=== PATIENT | female | born 1950 | race Caucasian/White ===

== ENCOUNTER 2018-09-15 14:19 | Emergency (ER) | payer MEDICARE ==
[2018-09-15] MEDS: SOD CHLORIDE 0.9% 1,000 ML IV ×2 (16:25→18:31)
[2018-09-15] MEDS: ONDANSETRON 4 MG INJ IV (16:29)
[2018-09-15 17:00] LABS: ADD MAN DIFF? NO
[2018-09-15 17:08] LABS: BASOPHIL # 0.1 10^3/ul (0.0-0.1); BASOPHILS % 0.5 % (0.0-2.0); EOSINOPHILS # 0.1 10^3/ul (0.0-0.5); EOSINOPHILS % 0.5 % (0.0-7.0); HEMATOCRIT 53.2 % (37.0-47.0); HEMOGLOBIN 17.5 g/dl (12.0-16.0); LYMPHOCYTES # 2.1 10^3/ul (0.8-2.9); LYMPHOCYTES % 15.8 % (15.0-51.0); MEAN CORPUSCULAR HEMOGLOBIN 28.8 pg (29.0-33.0); MEAN CORPUSCULAR HGB CONC 32.9 g/dl (32.0-37.0); MEAN CORPUSCULAR VOLUME 87.6 fl (82.0-101.0); MEAN PLATELET VOLUME 11.8 fl (7.4-10.4); MONOCYTE # 1.3 10^3/ul (0.3-0.9); NEUTROPHIL # 9.7 10^3/ul (1.6-7.5); NEUTROPHILS % 72.7 % (39.0-77.0); PLATELET COUNT 257 10^3/UL (140-415); RED BLOOD COUNT 6.07 10^6/ul (4.20-5.40); RED CELL DISTRIBUTION WIDTH 15.4 % (11.5-14.5)
[2018-09-15 17:08] LABS: WHITE BLOOD COUNT 13.3 10^3/ul (4.8-10.8)
[2018-09-15 17:29] LABS: ALANINE AMINOTRANSFERASE 25 IU/L (13-69); ALBUMIN 4.4 g/dl (3.3-4.9); ALBUMIN/GLOBULIN RATIO 1.12; ALKALINE PHOSPHATASE 118 IU/L (42-121); ANION GAP 20 (5-13); ASPARTATE AMINO TRANSFERASE 45 IU/L (15-46); BILIRUBIN,INDIRECT 1.2 mg/dl (0-1.1); BILIRUBIN,TOTAL 1.2 mg/dl (0.2-1.3); BLOOD UREA NITROGEN 31 mg/dl (7-20); CALCIUM 9.6 mg/dl (8.4-10.2); CARBON DIOXIDE 26 mmol/L (21-31); CHLORIDE 89 mmol/L (97-110); CREATININE 1.59 mg/dl (0.44-1.00); Estimated GFR 32 mL/min (>60); GLUCOSE 168 mg/dl (70-220); LIPASE 245 U/L (23-300); POTASSIUM 3.4 mmol/L (3.5-5.1); SODIUM 135 mmol/L (135-144); TOTAL PROTEIN 8.3 g/dl (6.1-8.1)
[2018-09-15] MEDS: LIDOCAINE/MYLANTA 40 ML BTL PO (18:31)
[2018-09-15] MEDS: FAMOTIDINE 20 MG TAB PO (18:31)
== END 2018-09-15 21:49 | disposition home or self-care (01) ==
LOC: E/R 14:19
DX: N28.9 Disorder of kidney and ureter, unspecified (principal); E86.0 Dehydration
CPT/HCPCS: 36415; 80053; 83690; 85025; 93005; 96374; 99284-25

== ENCOUNTER 2018-09-17 15:05 | Inpatient (IN) | payer MEDICARE ==
[~2018-09-17 15:05] MED LIST: DESFLURANE 15 MIN; LIDOCAINE 2% (SDV) 5 ML INJ; PROPOFOL 200 MG INJ
[2018-09-17 16:05] LABS: ADD MAN DIFF? NO
[2018-09-17] MEDS: SOD CHLORIDE 0.9% 1,000 ML IV (16:05)
[2018-09-17] MEDS: ONDANSETRON 4 MG INJ IV ×2 (16:05→17:47)
[2018-09-17 16:13] LABS: WHITE BLOOD COUNT 10.7 10^3/ul (4.8-10.8)
[2018-09-17 16:13] LABS: BASOPHIL # 0.1 10^3/ul (0.0-0.1); BASOPHILS % 0.6 % (0.0-2.0); EOSINOPHILS % 0.4 % (0.0-7.0); HEMATOCRIT 49.5 % (37.0-47.0); HEMOGLOBIN 16.5 g/dl (12.0-16.0); LYMPHOCYTES # 0.9 10^3/ul (0.8-2.9); LYMPHOCYTES % 8.7 % (15.0-51.0); MEAN CORPUSCULAR HEMOGLOBIN 29.3 pg (29.0-33.0); MEAN CORPUSCULAR HGB CONC 33.3 g/dl (32.0-37.0); MEAN CORPUSCULAR VOLUME 87.9 fl (82.0-101.0); MEAN PLATELET VOLUME 12.3 fl (7.4-10.4); MONOCYTE # 1.2 10^3/ul (0.3-0.9); MONOCYTES % 11.5 % (0.0-11.0); NEUTROPHIL # 8.4 10^3/ul (1.6-7.5); NEUTROPHILS % 78.3 % (39.0-77.0); PLATELET COUNT 224 10^3/UL (140-415); RED BLOOD COUNT 5.63 10^6/ul (4.20-5.40); RED CELL DISTRIBUTION WIDTH 14.7 % (11.5-14.5)
[2018-09-17 16:29] LABS: ALANINE AMINOTRANSFERASE 31 IU/L (13-69); ALBUMIN/GLOBULIN RATIO 1.11; ALKALINE PHOSPHATASE 94 IU/L (42-121); ANION GAP 16 (5-13); ASPARTATE AMINO TRANSFERASE 28 IU/L (15-46); BILIRUBIN,INDIRECT 0.7 mg/dl (0-1.1); BILIRUBIN,TOTAL 0.7 mg/dl (0.2-1.3); BLOOD UREA NITROGEN 26 mg/dl (7-20); CALCIUM 9.2 mg/dl (8.4-10.2); CARBON DIOXIDE 29 mmol/L (21-31); CHLORIDE 90 mmol/L (97-110); CREATININE 1.15 mg/dl (0.44-1.00); Estimated GFR 47 mL/min (>60); GLUCOSE 170 mg/dl (70-220); LIPASE 821 U/L (23-300); POTASSIUM 3.5 mmol/L (3.5-5.1); SODIUM 135 mmol/L (135-144); TOTAL PROTEIN 7.6 g/dl (6.1-8.1)
[2018-09-17 16:40] LABS: TROPONIN-I < 0.012 ng/ml (0.000-0.120)
[2018-09-17] MEDS: LIDOCAINE 2% VISC 15 ML CUP PO (17:47)
[2018-09-17] MEDS: LORAZEPAM 2 MG INJ IV (17:47)
[2018-09-17] MEDS ORDERED: hydrALAzine 20 MG INJ IV (18:30)
[2018-09-17] MEDS ORDERED: ONDANSETRON 4 MG INJ IV ×3 (18:30→22:30)
[2018-09-17] MEDS ORDERED: NACL 0.9% 3 ML SYG IV (18:30)
[2018-09-17] MEDS ORDERED: HYDROCODONE/APAP (5/325) TAB PO (18:30)
[2018-09-17] MEDS ORDERED: DOCUSATE SODIUM 100 MG CAP PO (18:30)
[2018-09-17] MEDS ORDERED: MAGNESIUM HYDROXIDE 30ML CUP PO (18:30)
[2018-09-17] MEDS ORDERED: ACETAMINOPHEN 325 MG TAB PO ×2 (18:30)
[2018-09-17] MEDS ORDERED: NITROGLYCERIN (SL) 0.4 MG TAB SL (18:30)
[2018-09-17] MEDS ORDERED: ALBUTEROL/IPRATROPIUM (NEB) 3 ML AMP HHN (18:30)
[2018-09-17 18:43] LABS: INR 0.92; PROTIME 12.5 Sec (11.9-14.9)
[2018-09-17 18:44] LABS: PARTIAL THROMBOPLASTIN TIME 25.8 Sec (23.0-35.0)
[2018-09-17] MEDS ORDERED: BUPIVACAINE 0.5%/EPI (SDV) 30 ML INJ (18:50)
[2018-09-17] MEDS ORDERED: LIDOCAINE 1% (MPF) 30 ML INJ (18:50)
[2018-09-17 19:02] LABS: FREE T4 (FREE THYROXINE) 1.34 ng/dl (0.78-2.44)
[2018-09-17] MEDS ORDERED: morphine SULFATE/PF (10 MG/10 ML) INJ (19:47)
[2018-09-17] MEDS ORDERED: FENTAnyl 50 MCG/ML VIAL (19:47)
[2018-09-17] MEDS ORDERED: MIDAZOLAM 1 MG/ML 2 ML INJ (20:00)
[2018-09-17] MEDS ORDERED: SUCCINYLCHOLINE CHLORIDE 100 MG/5 ML SYG IV (20:00)
[2018-09-17] MEDS ORDERED: PROPOFOL 20 ML (20:00)
[2018-09-17] MEDS ORDERED: EPHEDrine 50 MG INJ (20:26)
[2018-09-17] MEDS ORDERED: VASOPRESSIN 20 UNITS INJ (20:26)
[2018-09-17] MEDS ORDERED: ROPIVACAINE 0.5 % 30 ML VIAL (21:53)
[2018-09-17] MEDS ORDERED: SUGAMMADEX SODIUM 200 MG/2 ML VIAL IV (22:10)
[2018-09-17] MEDS ORDERED: FLUMAZENIL 0.5 MG INJ (22:13)
[2018-09-17] MEDS ORDERED: morphine 2 MG INJ IV (22:30)
[2018-09-17] MEDS ORDERED: KETOROLAC 30 MG INJ IV ×2 (22:30→23:00)
[2018-09-17] MEDS ORDERED: NALOXONE (0.4 MG/ML) INJ IV (23:00)
[2018-09-17] MEDS ORDERED: HYDROmorphONE 0.5 MG/0.5 ML SYG IV ×2 (23:00)
[2018-09-17] MEDS: SOD CHLORIDE 0.9% 500 ML IV (23:03)
[2018-09-17] MEDS: CEFTRIAXONE 1 GM/50 ML (PMX) 50 ML IVPB (23:42)
[2018-09-18] MEDS: AMPICILLIN/SULB 3 GM/NS (PMX) 100 ML IVPB (01:16)
[2018-09-18] MEDS: SOD CHLORIDE 0.45% 1,000 ML IV ×2 (01:16→07:34)
[2018-09-18] MEDS: D5W-0.45 NACL + KCL 20 MEQ 1,000 ML IV ×3 (01:22→12:51)
[2018-09-18] MEDS: PANTOPRAZOLE 40 MG INJ IV ×2 (05:53→05:54)
[2018-09-18] MEDS: HEPARIN 5,000 UNIT/1 ML VIAL SC ×3 (05:54→21:32)
[2018-09-18] MEDS: metroNIDAZOLE 500 MG/NS (PMX) 100 ML IVPB ×3 (05:54→21:09)
[2018-09-18 09:15] LABS: ADD MAN DIFF? NO
[2018-09-18 09:23] LABS: BASOPHIL # 0.1 10^3/ul (0.0-0.1); BASOPHILS % 0.4 % (0.0-2.0); EOSINOPHILS % 0.1 % (0.0-7.0); HEMATOCRIT 47.8 % (37.0-47.0); HEMOGLOBIN 15.8 g/dl (12.0-16.0); LYMPHOCYTES # 0.6 10^3/ul (0.8-2.9); LYMPHOCYTES % 5.2 % (15.0-51.0); MEAN CORPUSCULAR HEMOGLOBIN 29.3 pg (29.0-33.0); MEAN CORPUSCULAR HGB CONC 33.1 g/dl (32.0-37.0); MEAN CORPUSCULAR VOLUME 88.7 fl (82.0-101.0); MEAN PLATELET VOLUME 12.9 fl (7.4-10.4); MONOCYTE # 1.1 10^3/ul (0.3-0.9); MONOCYTES % 8.8 % (0.0-11.0); NEUTROPHIL # 10.3 10^3/ul (1.6-7.5); NEUTROPHILS % 85.1 % (39.0-77.0); PLATELET COUNT 184 10^3/UL (140-415); RED BLOOD COUNT 5.39 10^6/ul (4.20-5.40); RED CELL DISTRIBUTION WIDTH 14.6 % (11.5-14.5)
[2018-09-18 09:23] LABS: WHITE BLOOD COUNT 12.1 10^3/ul (4.8-10.8)
[2018-09-18 09:35] LABS: ANION GAP 12 (5-13); BLOOD UREA NITROGEN 29 mg/dl (7-20); CALCIUM 8.3 mg/dl (8.4-10.2); CARBON DIOXIDE 29 mmol/L (21-31); CHLORIDE 94 mmol/L (97-110); CREATININE 1.39 mg/dl (0.44-1.00); Estimated GFR 38 mL/min (>60); GLUCOSE 166 mg/dl (70-220); PHOSPHORUS 5.4 mg/dl (2.5-4.9); POTASSIUM 4.1 mmol/L (3.5-5.1); SODIUM 135 mmol/L (135-144)
[2018-09-18 09:47] LABS: HEMOGLOBIN A1C 5.8 % (0-5.9)
[2018-09-18 09:52] LABS: CHOLESTEROL 104 mg/dl (100-200)
[2018-09-18 09:52] LABS: CHOL/HDL RATIO 2.1 RATIO; HDL CHOLESTEROL 49 mg/dl (35-98); LDL CHOLESTEROL,CALCULATED 40 mg/dl; TRIGLYCERIDES 73 mg/dl (0-149)
[2018-09-18 10:19] LABS: THYROID STIMULATING HORMONE 0.775 MIU/L (0.465-4.680)
[2018-09-18] MEDS: DIPHENHYDRAMINE 50 MG INJ IV (21:08)
[2018-09-18] MEDS: FAMOTIDINE 20 MG INJ IV (21:09)
[2018-09-19] MEDS: D5W-0.45 NACL + KCL 20 MEQ 1,000 ML IV ×3 (06:12→22:10)
[2018-09-19] MEDS: HEPARIN 5,000 UNIT/1 ML VIAL SC ×3 (06:26→22:06)
[2018-09-19 07:49] LABS: ADD MAN DIFF? NO
[2018-09-19 07:53] LABS: WHITE BLOOD COUNT 8.1 10^3/ul (4.8-10.8)
[2018-09-19 07:53] LABS: ABNORMAL IP MESSAGE 1; BASOPHILS % 0.5 % (0.0-2.0); EOSINOPHILS # 0.1 10^3/ul (0.0-0.5); HEMATOCRIT 45.6 % (37.0-47.0); HEMOGLOBIN 14.4 g/dl (12.0-16.0); LYMPHOCYTES # 0.9 10^3/ul (0.8-2.9); LYMPHOCYTES % 11.6 % (15.0-51.0); MEAN CORPUSCULAR HEMOGLOBIN 28.8 pg (29.0-33.0); MEAN CORPUSCULAR HGB CONC 31.6 g/dl (32.0-37.0); MEAN CORPUSCULAR VOLUME 91.2 fl (82.0-101.0); MEAN PLATELET VOLUME 13.2 fl (7.4-10.4); MONOCYTE # 1.2 10^3/ul (0.3-0.9); MONOCYTES % 14.6 % (0.0-11.0); NEUTROPHIL # 5.8 10^3/ul (1.6-7.5); NEUTROPHILS % 71.8 % (39.0-77.0); PLATELET COUNT 174 10^3/UL (140-415)
[2018-09-19 07:55] LABS: POSITIVE DIFF @See below
[2018-09-19 08:11] LABS: ANION GAP 8 (5-13); BLOOD UREA NITROGEN 28 mg/dl (7-20); CALCIUM 8.4 mg/dl (8.4-10.2); CARBON DIOXIDE 29 mmol/L (21-31); CHLORIDE 96 mmol/L (97-110); CREATININE 1.03 mg/dl (0.44-1.00); Estimated GFR 53 mL/min (>60); GLUCOSE 144 mg/dl (70-220); POTASSIUM 4.2 mmol/L (3.5-5.1); SODIUM 133 mmol/L (135-144)
[2018-09-19] MEDS: FAMOTIDINE 20 MG INJ IV ×2 (08:39→22:04)
[2018-09-19] MEDS: morphine 2 MG INJ IV (11:18)
[2018-09-19] MEDS: LORAZEPAM 2 MG INJ IV (22:04)
[2018-09-20] MEDS: HEPARIN 5,000 UNIT/1 ML VIAL SC ×3 (05:39→22:15)
[2018-09-20 05:58] LABS: ADD MAN DIFF? NO
[2018-09-20 06:29] LABS: ABNORMAL IP MESSAGE 1; BASOPHIL # 0.1 10^3/ul (0.0-0.1); BASOPHILS % 0.7 % (0.0-2.0); EOSINOPHILS # 0.3 10^3/ul (0.0-0.5); EOSINOPHILS % 3.3 % (0.0-7.0); HEMATOCRIT 43.8 % (37.0-47.0); HEMOGLOBIN 14.2 g/dl (12.0-16.0); LYMPHOCYTES # 1.2 10^3/ul (0.8-2.9); LYMPHOCYTES % 15.2 % (15.0-51.0); MEAN CORPUSCULAR HEMOGLOBIN 29.1 pg (29.0-33.0); MEAN CORPUSCULAR HGB CONC 32.4 g/dl (32.0-37.0); MEAN CORPUSCULAR VOLUME 89.8 fl (82.0-101.0); MEAN PLATELET VOLUME 13.2 fl (7.4-10.4); MONOCYTE # 1.1 10^3/ul (0.3-0.9); MONOCYTES % 14.4 % (0.0-11.0); NEUTROPHIL # 5.1 10^3/ul (1.6-7.5); NEUTROPHILS % 66.1 % (39.0-77.0); PLATELET COUNT 191 10^3/UL (140-415); RED BLOOD COUNT 4.88 10^6/ul (4.20-5.40)
[2018-09-20 06:29] LABS: WHITE BLOOD COUNT 7.7 10^3/ul (4.8-10.8)
[2018-09-20 06:39] LABS: POSITIVE DIFF @See below
[2018-09-20 06:41] LABS: ANION GAP 6 (5-13); BLOOD UREA NITROGEN 15 mg/dl (7-20); CALCIUM 8.3 mg/dl (8.4-10.2); CARBON DIOXIDE 30 mmol/L (21-31); CHLORIDE 99 mmol/L (97-110); CREATININE 0.74 mg/dl (0.44-1.00); Estimated GFR > 60 mL/min (>60); GLUCOSE 142 mg/dl (70-220); POTASSIUM 3.7 mmol/L (3.5-5.1); SODIUM 135 mmol/L (135-144)
[2018-09-20] MEDS: D5W-0.45 NACL + KCL 20 MEQ 1,000 ML IV ×2 (07:54→23:26)
[2018-09-20] MEDS: FAMOTIDINE 20 MG INJ IV ×2 (09:40→22:08)
[2018-09-20] MEDS ORDERED: CEPASTAT LOZENGE MT (09:48)
[2018-09-20] MEDS: ZOLPIDEM 5 MG TAB PO (21:09)
[2018-09-20] MEDS: DIPHENHYDRAMINE 50 MG INJ IV (23:34)
[2018-09-21 05:22] LABS: ADD MAN DIFF? NO
[2018-09-21 05:24] LABS: WHITE BLOOD COUNT 8.1 10^3/ul (4.8-10.8)
[2018-09-21 05:24] LABS: BASOPHIL # 0.1 10^3/ul (0.0-0.1); BASOPHILS % 0.7 % (0.0-2.0); EOSINOPHILS # 0.3 10^3/ul (0.0-0.5); EOSINOPHILS % 3.7 % (0.0-7.0); HEMATOCRIT 45.3 % (37.0-47.0); HEMOGLOBIN 14.5 g/dl (12.0-16.0); LYMPHOCYTES # 1.1 10^3/ul (0.8-2.9); LYMPHOCYTES % 13.5 % (15.0-51.0); MEAN CORPUSCULAR HEMOGLOBIN 29.1 pg (29.0-33.0); MEAN CORPUSCULAR VOLUME 90.8 fl (82.0-101.0); MEAN PLATELET VOLUME 12.8 fl (7.4-10.4); MONOCYTES % 12.7 % (0.0-11.0); NEUTROPHIL # 5.5 10^3/ul (1.6-7.5); NEUTROPHILS % 68.7 % (39.0-77.0); PLATELET COUNT 191 10^3/UL (140-415); RED BLOOD COUNT 4.99 10^6/ul (4.20-5.40); RED CELL DISTRIBUTION WIDTH 14.7 % (11.5-14.5)
[2018-09-21 05:45] LABS: ANION GAP 9 (5-13); BLOOD UREA NITROGEN 8 mg/dl (7-20); CALCIUM 8.2 mg/dl (8.4-10.2); CARBON DIOXIDE 30 mmol/L (21-31); CHLORIDE 98 mmol/L (97-110); Estimated GFR > 60 mL/min (>60); GLUCOSE 130 mg/dl (70-220); SODIUM 137 mmol/L (135-144)
[2018-09-21] MEDS: HEPARIN 5,000 UNIT/1 ML VIAL SC ×3 (06:17→20:45)
[2018-09-21] MEDS: D5W-0.45 NACL + KCL 20 MEQ 1,000 ML IV ×3 (06:22→20:39)
[2018-09-21] MEDS: FAMOTIDINE 20 MG INJ IV ×2 (09:26→20:39)
[2018-09-21] MEDS: LORAZEPAM 2 MG INJ IV (20:40)
[2018-09-22 05:13] LABS: ADD MAN DIFF? NO
[2018-09-22 05:23] LABS: WHITE BLOOD COUNT 8.6 10^3/ul (4.8-10.8)
[2018-09-22 05:23] LABS: BASOPHIL # 0.1 10^3/ul (0.0-0.1); EOSINOPHILS # 0.5 10^3/ul (0.0-0.5); EOSINOPHILS % 5.8 % (0.0-7.0); HEMATOCRIT 44.4 % (37.0-47.0); HEMOGLOBIN 13.9 g/dl (12.0-16.0); LYMPHOCYTES # 1.5 10^3/ul (0.8-2.9); LYMPHOCYTES % 17.3 % (15.0-51.0); MEAN CORPUSCULAR HGB CONC 31.3 g/dl (32.0-37.0); MEAN CORPUSCULAR VOLUME 92.5 fl (82.0-101.0); MEAN PLATELET VOLUME 12.2 fl (7.4-10.4); MONOCYTE # 1.3 10^3/ul (0.3-0.9); MONOCYTES % 14.6 % (0.0-11.0); NEUTROPHIL # 5.2 10^3/ul (1.6-7.5); NEUTROPHILS % 60.1 % (39.0-77.0); PLATELET COUNT 239 10^3/UL (140-415); RED CELL DISTRIBUTION WIDTH 14.9 % (11.5-14.5)
[2018-09-22] MEDS: D5W-0.45 NACL + KCL 20 MEQ 1,000 ML IV ×2 (05:50→16:52)
[2018-09-22] MEDS: HEPARIN 5,000 UNIT/1 ML VIAL SC ×3 (05:54→21:28)
[2018-09-22 05:57] LABS: ANION GAP 6 (5-13); BLOOD UREA NITROGEN 6 mg/dl (7-20); CALCIUM 8.2 mg/dl (8.4-10.2); CARBON DIOXIDE 33 mmol/L (21-31); CHLORIDE 98 mmol/L (97-110); CREATININE 0.63 mg/dl (0.44-1.00); Estimated GFR > 60 mL/min (>60); GLUCOSE 134 mg/dl (70-220); POTASSIUM 3.5 mmol/L (3.5-5.1); SODIUM 137 mmol/L (135-144)
[2018-09-22] MEDS: FAMOTIDINE 20 MG INJ IV ×2 (08:39→21:24)
[2018-09-22] MEDS: LOPERAMIDE 2 MG CAP PO (16:49)
[2018-09-22] MEDS: LORAZEPAM 2 MG INJ IV (22:39)
[2018-09-22] MEDS: ZOLPIDEM 5 MG TAB PO (23:50)
[2018-09-23] MEDS: ZOLPIDEM 5 MG TAB PO ×2 (01:42→23:36)
[2018-09-23] MEDS: D5W-0.45 NACL + KCL 20 MEQ 1,000 ML IV ×3 (03:10→15:03)
[2018-09-23 05:00] LABS: ADD MAN DIFF? NO
[2018-09-23 05:02] LABS: WHITE BLOOD COUNT 9.2 10^3/ul (4.8-10.8)
[2018-09-23 05:02] LABS: BASOPHIL # 0.1 10^3/ul (0.0-0.1); BASOPHILS % 1.2 % (0.0-2.0); EOSINOPHILS # 0.6 10^3/ul (0.0-0.5); EOSINOPHILS % 6.2 % (0.0-7.0); LYMPHOCYTES # 1.6 10^3/ul (0.8-2.9); LYMPHOCYTES % 17.2 % (15.0-51.0); MEAN CORPUSCULAR HEMOGLOBIN 29.2 pg (29.0-33.0); MEAN CORPUSCULAR HGB CONC 31.1 g/dl (32.0-37.0); MEAN CORPUSCULAR VOLUME 93.8 fl (82.0-101.0); MEAN PLATELET VOLUME 11.5 fl (7.4-10.4); MONOCYTE # 1.5 10^3/ul (0.3-0.9); NEUTROPHIL # 5.4 10^3/ul (1.6-7.5); NEUTROPHILS % 58.4 % (39.0-77.0); PLATELET COUNT 239 10^3/UL (140-415)
[2018-09-23 05:36] LABS: ANION GAP 3 (5-13); BLOOD UREA NITROGEN 3 mg/dl (7-20); CALCIUM 8.3 mg/dl (8.4-10.2); CARBON DIOXIDE 34 mmol/L (21-31); CHLORIDE 102 mmol/L (97-110); CREATININE 0.58 mg/dl (0.44-1.00); Estimated GFR > 60 mL/min (>60); GLUCOSE 126 mg/dl (70-220); SODIUM 139 mmol/L (135-144)
[2018-09-23] MEDS: HEPARIN 5,000 UNIT/1 ML VIAL SC ×3 (06:08→21:18)
[2018-09-23] MEDS: FAMOTIDINE 20 MG INJ IV ×2 (09:00→21:16)
[2018-09-23 11:30] LABS: ADD UMIC YES; UR ASCORBIC ACID NEGATIVE (NEGATIVE); UR BACTERIA FEW /HPF (NONE SEEN); UR BILIRUBIN (Dip) NEGATIVE (NEGATIVE); UR BLOOD (Dip) 1+ mg/dL (NEGATIVE); UR BUDDING YEAST FEW /HPF (NONE SEEN); UR CLARITY SLIGHTLY CLOUDY (CLEAR); UR COLOR YELLOW (YELLOW); UR GLUCOSE (Dip) NEGATIVE (NEGATIVE); UR KETONES (Dip) NEGATIVE (NEGATIVE); UR LEUKOCYTE ESTERASE (Dip) 2+ Leu/ul (NEGATIVE); UR MUCUS FEW /HPF (NONE SEEN); UR NITRITE (Dip) NEGATIVE (NEGATIVE); UR RBC 6 /HPF (0-5); UR SPECIFIC GRAVITY (Dip) 1.008 (1.003-1.030); UR SQUAMOUS EPITHELIAL CELL MODERATE /HPF (FEW); UR TOTAL PROTEIN (Dip) NEGATIVE (NEGATIVE); UR UROBILINOGEN (Dip) NEGATIVE (NEGATIVE); UR WBC 29 /HPF (0-5)
[2018-09-23] MEDS: LEVOFLOXACIN 750 MG TABLET NGT (15:07)
[2018-09-23] MEDS: LORAZEPAM 2 MG INJ IV (22:02)
[2018-09-24] MEDS: D5W-0.45 NACL + KCL 20 MEQ 1,000 ML IV ×2 (04:22→11:13)
[2018-09-24 06:08] LABS: ADD MAN DIFF? NO
[2018-09-24 06:13] LABS: BASOPHIL # 0.1 10^3/ul (0.0-0.1); BASOPHILS % 0.7 % (0.0-2.0); EOSINOPHILS # 0.5 10^3/ul (0.0-0.5); EOSINOPHILS % 4.5 % (0.0-7.0); HEMATOCRIT 43.1 % (37.0-47.0); HEMOGLOBIN 13.3 g/dl (12.0-16.0); LYMPHOCYTES # 1.4 10^3/ul (0.8-2.9); LYMPHOCYTES % 13.7 % (15.0-51.0); MEAN CORPUSCULAR HEMOGLOBIN 29.2 pg (29.0-33.0); MEAN CORPUSCULAR HGB CONC 30.9 g/dl (32.0-37.0); MEAN CORPUSCULAR VOLUME 94.7 fl (82.0-101.0); MEAN PLATELET VOLUME 11.7 fl (7.4-10.4); MONOCYTE # 1.2 10^3/ul (0.3-0.9); NEUTROPHIL # 6.9 10^3/ul (1.6-7.5); NEUTROPHILS % 68.3 % (39.0-77.0); PLATELET COUNT 267 10^3/UL (140-415); RED BLOOD COUNT 4.55 10^6/ul (4.20-5.40)
[2018-09-24] MEDS: LEVOFLOXACIN 750 MG TABLET NGT (06:28)
[2018-09-24] MEDS: HEPARIN 5,000 UNIT/1 ML VIAL SC ×3 (06:31→21:38)
[2018-09-24 06:50] LABS: ANION GAP 1 (5-13); BLOOD UREA NITROGEN 3 mg/dl (7-20); CALCIUM 8.5 mg/dl (8.4-10.2); CARBON DIOXIDE 35 mmol/L (21-31); CHLORIDE 101 mmol/L (97-110); CREATININE 0.55 mg/dl (0.44-1.00); Estimated GFR > 60 mL/min (>60); GLUCOSE 121 mg/dl (70-220); SODIUM 137 mmol/L (135-144)
[2018-09-24] MEDS: FAMOTIDINE 20 MG INJ IV ×2 (09:00→21:34)
[2018-09-24] MEDS: LORAZEPAM 2 MG INJ IV (21:49)
[2018-09-24] MEDS: ZOLPIDEM 5 MG TAB PO (23:20)
[2018-09-25] MEDS: D5W-0.45 NACL + KCL 20 MEQ 1,000 ML IV ×3 (00:22→20:22)
[2018-09-25] MEDS: HYDROCORTISONE 1% 28.35 GM OINT TOP ×3 (01:00→21:03)
[2018-09-25 05:24] LABS: WHITE BLOOD COUNT 13.9 10^3/ul (4.8-10.8)
[2018-09-25 05:24] LABS: ADD MAN DIFF? NO; BASOPHIL # 0.1 10^3/ul (0.0-0.1); BASOPHILS % 0.7 % (0.0-2.0); EOSINOPHILS # 0.3 10^3/ul (0.0-0.5); EOSINOPHILS % 2.2 % (0.0-7.0); HEMATOCRIT 41.8 % (37.0-47.0); HEMOGLOBIN 13.3 g/dl (12.0-16.0); LYMPHOCYTES # 1.5 10^3/ul (0.8-2.9); LYMPHOCYTES % 10.5 % (15.0-51.0); MEAN CORPUSCULAR HEMOGLOBIN 29.3 pg (29.0-33.0); MEAN CORPUSCULAR HGB CONC 31.8 g/dl (32.0-37.0); MEAN CORPUSCULAR VOLUME 92.1 fl (82.0-101.0); MONOCYTE # 1.2 10^3/ul (0.3-0.9); MONOCYTES % 8.9 % (0.0-11.0); NEUTROPHIL # 10.7 10^3/ul (1.6-7.5); NEUTROPHILS % 76.9 % (39.0-77.0); PLATELET COUNT 281 10^3/UL (140-415); RED BLOOD COUNT 4.54 10^6/ul (4.20-5.40)
[2018-09-25 06:16] LABS: ANION GAP 3 (5-13); BLOOD UREA NITROGEN 9 mg/dl (7-20); CALCIUM 8.6 mg/dl (8.4-10.2); CARBON DIOXIDE 33 mmol/L (21-31); CHLORIDE 100 mmol/L (97-110); CREATININE 0.73 mg/dl (0.44-1.00); Estimated GFR > 60 mL/min (>60); GLUCOSE 122 mg/dl (70-220); SODIUM 136 mmol/L (135-144)
[2018-09-25] MEDS: LEVOFLOXACIN 750 MG TABLET NGT (06:38)
[2018-09-25] MEDS: HEPARIN 5,000 UNIT/1 ML VIAL SC ×3 (06:40→21:06)
[2018-09-25] MEDS: FAMOTIDINE 20 MG INJ IV ×2 (09:00→21:03)
[2018-09-25] MEDS: LOPERAMIDE 2 MG CAP PO ×2 (15:41→21:07)
[2018-09-25] MEDS: ZOLPIDEM 5 MG TAB PO (21:11)
[2018-09-25] MEDS: LORAZEPAM 2 MG INJ IV (21:11)
[2018-09-26] MEDS: D5W-0.45 NACL + KCL 20 MEQ 1,000 ML IV (01:22)
[2018-09-26] MEDS: ZOLPIDEM 5 MG TAB PO (01:22)
[2018-09-26] MEDS: LEVOFLOXACIN 750 MG TABLET NGT (06:45)
[2018-09-26] MEDS: HEPARIN 5,000 UNIT/1 ML VIAL SC (06:46)
[2018-09-26] MEDS: FAMOTIDINE 20 MG INJ IV (09:59)
[2018-09-26] MEDS: HYDROCORTISONE 1% 28.35 GM OINT TOP (10:06)
[2018-09-26] MEDS ORDERED: ZOLPIDEM 5 MG TAB PO (21:00)
== END 2018-09-26 15:15 | disposition home or self-care (01) | DRG 345 ==
LOC: TEL 18:25 → MS1 09-19 13:03 → E/R 15:05 → REC 18:22
PROC: 0DJD4ZZ Inspection of Lower Intestinal Tract, Percutaneous Endoscopic Approach (ICD-10-PCS; principal; 2018-09-17 19:41)
PROC: 0DB80ZX Excision of Small Intestine, Open Approach, Diagnostic (ICD-10-PCS; 2018-09-17 19:41)
DX: K56.3 Gallstone ileus (principal); N17.9 Acute kidney failure, unspecified; N39.0 Urinary tract infection, site not specified; Z68.43 Body mass index [BMI] 50.0-59.9, adult; E66.9 Obesity, unspecified; Z90.49 Acquired absence of other specified parts of digestive tract; Z87.891 Personal history of nicotine dependence; R19.7 Diarrhea, unspecified; R32 Unspecified urinary incontinence
CPT/HCPCS: 36415; 74176; 76705; 80048; 80053; 80061; 81001; 83036; 83690; 83735; 84100; 84439; 84443; 84484; 85025; 85610; 85730; 87075; 87086; 88305; 93005; 96374; 96375; 96376; 97110; 97116; 97162; 97167; 97530; 97535; 99285-25